=== PATIENT | female | born 1960 | race Caucasian/White ===

== ENCOUNTER 2018-09-17 21:03 | Emergency (ER) | payer BC ==
[~2018-09-17] VITALS: Ht 157.5 cm; Wt 59.0 kg
--- NOTE | 2018-09-17 21:21 | NUR ---
Dr. Solano at bedside for MSE.
[2018-09-17] MEDS ORDERED: ALBUTEROL SULFATE 2.5 MG/3 ML NEBU NEB ONE (21:30)
[2018-09-17] MEDS ORDERED: IPRATROPIUM BROMIDE 0.5 MG/2.5 ML NEBU NEB ONE (21:30)
--- NOTE | 2018-09-17 21:30 | NUR ---
Xray at bedside.
[2018-09-17] MEDS ORDERED: IPRATROPIUM BROMIDE 0.5 MG/2.5 ML NEBU ONE (21:32)
[2018-09-17] MEDS ORDERED: ALBUTEROL SULFATE 2.5 MG/ 0.5 ML NEBU ONE (21:32)
--- NOTE | 2018-09-17 21:35 | NUR ---
Respiratory at bedside.
--- NOTE | 2018-09-17 22:39 | NUR ---
Patient discharged to home in stable conditon. Written and verbal after care instructions given. Patient verbalizes understanding of instructions. Patient ambulated out of ER with steady gait, no acute signs of distress, VSS, all belongings taken.
[2018-09-17 22:40] VITALS: BP 145/87
== END 2018-09-17 22:40 | disposition home or self-care (01) ==
LOC: ER 21:05
DX: B34.9 Viral infection, unspecified (principal); J98.01 Acute bronchospasm; R06.02 Shortness of breath; E78.5 Hyperlipidemia, unspecified; F17.200 Nicotine dependence, unspecified, uncomplicated; Z88.6 Allergy status to analgesic agent
CPT/HCPCS: 71045; A4663; J3590

== ENCOUNTER 2019-11-21 22:18 | Emergency (ER) | payer BC ==
[~2019-11-21] VITALS: Ht 154.9 cm; Wt 56.7 kg
[2019-11-21] MEDS ORDERED: ALBU8HFA4 INH (22:35)
== END 2019-11-21 23:15 | disposition left against medical advice (07) ==
LOC: ER 22:19
DX: Z53.21 Procedure and treatment not carried out due to patient leaving prior to being seen by health care provider (principal)
CPT/HCPCS: A4663

== ENCOUNTER 2022-07-24 21:41 | Emergency (ER) | payer BC ==
[~2022-07-24] VITALS: Ht 160 cm; Wt 50.8 kg
[~2022-07-24 21:41] MED LIST: ALBU8HFA4 INH
--- NOTE | 2022-07-24 21:50 | NUR ---
Dr Gamez at bedside, MSE in progress
[2022-07-24] MEDS ORDERED: THIAMINE HCL 100 MG TABLET ONE (22:10)
[2022-07-24] MEDS ORDERED: THIAMINE HCL 100 MG TABLET PO ONE (22:15)
[2022-07-24] MEDS ORDERED: IV NORMAL SALINE 1000 ML BAG IV ONE (22:15)
[2022-07-24 22:28] LABS: HEMATOCRIT 38.5 % (31.2-41.9); MEAN CORPUSCULAR HEMOGLOBIN 35.3 uug (24.7-32.8); PLATELET COUNT (AUTO) 298 K/uL (179-408)
[2022-07-24 22:35] LABS: CARBON DIOXIDE 24 mmol/L (21-32); CHLORIDE 104 mmol/L (98-107); CREATININE 0.7 mg/dL (0.6-1.3); GLUCOSE 93 mg/dL (74-106); POTASSIUM 3.5 mmol/L (3.5-5.1); UREA NITROGEN, BLOOD 13 mg/dL (7-18)
[2022-07-24 22:39] LABS: ETHANOL 191 MG/DL (0-0)
[2022-07-24 22:40] LABS: ALANINE AMINOTRANSFERASE 28 U/L (14-59); ALKALINE PHOSPHATASE 76 U/L (50-136); ASPARTATE AMINOTRANSFERASE 20 U/L (15-37); BILIRUBIN,TOTAL 0.1 mg/dL (0.2-1.0); TOTAL PROTEIN, SERUM 6.7 g/dL (6.4-8.2)
[2022-07-24 22:42] LABS: ACETAMINOPHEN < 2.0 ug/mL (10-30); BILIRUBIN,DIRECT < 0.1 mg/dL (0.0-0.2)
[2022-07-24 23:05] LABS: MAGNESIUM 2.4 mg/dL (1.8-2.4)
[2022-07-24] MEDS ORDERED: CYANOCOBALAMIN 1000 MCG/ML VIAL ONE (23:44)
[2022-07-24] MEDS ORDERED: CYANOCOBALAMIN 1000 MCG/ML VIAL IM ONE (23:45)
--- NOTE | 2022-07-25 00:50 | NUR ---
Patient is a/ox4, able to walk to the restroom with steady gait. NAD noted
[2022-07-25 01:33] LABS: *BILIRUBIN,URIN NEGATIVE (NEGATIVE); *BLOOD, URINE NEGATIVE (NEGATIVE); *CLARITY,URINE CLEAR (CLEAR); *COLOR,URINE YELLOW (YELLOW); *KETONES,URINE TRACE (NEGATIVE); *UROBILINOGEN,URINE 0.2 E.U./dl (NORMAL); LEUKOCYTE ESTERASE ,URINE NEGATIVE (NEGATIVE); NITRITE, URINE NEGATIVE (NEGATIVE); PH,URINE 5.5 (5.0-8.0); UGLUCOSE NEGATIVE (NEGATIVE)
[2022-07-25 01:54] LABS: *AMPHETAMINE, URINE NEGATIVE (NEGATIVE); *CANNABINOID, URINE POSITIVE (NEGATIVE); *COCCAINE, URINE NEGATIVE (NEGATIVE); *OPIATE, URINE NEGATIVE (NEGATIVE); *PHENCYCLIDINE SCREEN,URINE NEGATIVE (NEGATIVE)
--- NOTE | 2022-07-25 02:28 | NUR ---
Patient discharged to home in stable condition. Written and verbal after care instructions given. Patient verbalizes understanding of instructions. Stressed follow up or return to ER for worsening s/s. Patient is a/ox4, NAD noted. Patient is able to walk with steady gait
[2022-07-25 02:41] VITALS: BP 110/65
== END 2022-07-25 02:41 | disposition home or self-care (01) ==
LOC: ER 21:43
DX: F10.129 Alcohol abuse with intoxication, unspecified (principal); Y90.6 Blood alcohol level of 120-199 mg/100 ml
CPT/HCPCS: 80076; 80048; 82607; 83735; 85025; 36415; 99284; 96360; 96372; 80299; 80320; 80307; 81003; J3420; J7040; A4663; G0480